=== PATIENT | male | born 1975 | race Caucasian/White ===

== ENCOUNTER 2020-09-09 03:16 | Emergency (ER) | payer BC, OTHER ==
[~2020-09-09] VITALS: Ht 177.8 cm; Wt 71.8 kg
[2020-09-09] MEDS ORDERED: COLCHICINE 0.6 MG CAPSULE ONE (04:15)
[2020-09-09] MEDS ORDERED: OXYcodone/APAP 5/325MG TABLET ONE (04:15)
[2020-09-09] MEDS ORDERED: KETOROLAC 60 MG/2 ML ONE (04:15)
[2020-09-09] MEDS ORDERED: ONDANSETRON ODT 4 MG ONE (04:15)
[2020-09-09] MEDS ORDERED: KETOROLAC 30 MG/1 ML IM ONE (04:30)
[2020-09-09] MEDS ORDERED: ONDANSETRON ODT 4 MG PO ONE (04:30)
[2020-09-09] MEDS ORDERED: OXYcodone/APAP 5/325MG TABLET PO ONE (04:30)
[2020-09-09] MEDS ORDERED: COLCHICINE 0.6 MG CAPSULE PO ONE (04:30)
[2020-09-09 04:31] LABS: BASOPHILS % (AUTO) 0 % (0-1); EOSINOPHILS % (AUTO) 1 % (1-7); LYMPHOCYTES % (AUTO) 8 % (22-44); MEAN CORPUSCULAR HEMOGLOBIN 31.8 pg (27.5-34.5); MEAN CORPUSCULAR HGB CONC 35.2 g/dL (33.2-36.2); MEAN PLATELET VOLUME 7.8 fL (7.4-10.4); MONOCYTES % (AUTO) 10 % (2-9); NEUTROPHILS % (AUTO) 81 % (42-75); PLATELET COUNT 289 x10^3/uL (130-400); RED BLOOD COUNT 4.93 x10^6/uL (4.38-5.82); RED CELL DISTRIBUTION WIDTH 12.8 % (9.4-14.8)
[2020-09-09 04:42] LABS: ALBUMIN 3.4 g/dL (3.4-5.0); ANION GAP 5 mmol/L (5-15); CHLORIDE 100 mmol/L (98-107); CREATININE 0.99 mg/dL (0.7-1.3)
[2020-09-09 04:49] LABS: CALCIUM 8.9 mg/dL (8.5-10.1)
[2020-09-09 05:02] VITALS: BP 160/77
--- NOTE | 2020-09-09 05:02 | NUR ---
ERP SPOKE WITH PT ABOUT URIC ACID LEVEL BEING LOW AND IMPORTANCE OF GETTING A JOINT ARTHROCENTESIS, PT REFUSED FOR ERP WELL FOR THIS RN. PT STATES HE WANTS TO DO IT OUT PATIENT
== END 2020-09-09 05:32 | disposition home or self-care (01) ==
LOC: ED 05:23
DX: M25.571 Pain in right ankle and joints of right foot (principal); M25.532 Pain in left wrist; E11.9 Type 2 diabetes mellitus without complications; R11.0 Nausea; Z87.891 Personal history of nicotine dependence
CPT/HCPCS: 36415; 80048; 82040; 84550; 85025; 85651; 86140; 96372; 99283; J1885

== ENCOUNTER 2020-10-19 05:55 | Inpatient (IN) | payer BC ==
[~2020-10-19] VITALS: Ht 180.3 cm; Wt 72.8 kg
[2020-10-19 07:09] VITALS: BP 145/90
[2020-10-19 07:23] LABS: ALANINE AMINOTRANSFERASE 18 U/L (12-78); ALBUMIN 3.3 g/dL (3.4-5.0); ANION GAP 5 mmol/L (5-15); CALCIUM 8.7 mg/dL (8.5-10.1); CHLORIDE 98 mmol/L (98-107); CREATININE 1.12 mg/dL (0.7-1.3)
[2020-10-19 07:24] LABS: ALKALINE PHOSPHATASE 159 U/L (45-117); BILIRUBIN,TOTAL 0.6 mg/dL (0.2-1.0); TOTAL PROTEIN 8.4 g/dL (6.4-8.2)
[2020-10-19] MEDS ORDERED: LACTATED RINGERS 1,000 ML IV SCH (07:30)
[2020-10-19] MEDS ORDERED: SODIUM CHLORIDE 0.9% 1,000 ML IV SCH (07:30)
[2020-10-19] MEDS ORDERED: CHLORHEXIDINE 15 ML UDC PO ONE (07:30)
[2020-10-19 07:32] LABS: INTERNATIONAL NORMALIZED RATIO 0.96 (0.93-1.1); PROTHROMBIN TIME 10.3 Seconds (9.6-11.5)
[2020-10-19] MEDS ORDERED: TRAM50TA2 PO (07:34)
[2020-10-19] MEDS ORDERED: NPH,100V SQ (07:34)
[2020-10-19] MEDS ORDERED: COLC0.6C3 PO (07:34)
[2020-10-19] MEDS ORDERED: INSU100V5 SQ-INSULIN (07:34)
[2020-10-19] MEDS ORDERED: INSULIN SINGLE DOSE, ER ONE (09:12)
[2020-10-19] MEDS ORDERED: INSULIN REGULAR 100 UNITS/ML, 3ML VIAL SQ-INSULIN ONE ×2 (09:30)
[2020-10-19] MEDS ORDERED: LABETALOL 5MG/ML, 20ML IV PRN (11:00)
[2020-10-19] MEDS ORDERED: OXYcodone 5 MG/5 ML ORAL.SOL UDC PO PRN ×2 (11:00→14:00)
[2020-10-19] MEDS ORDERED: ACETAMINOPHEN 325 MG TABLET PO PRN (11:00)
[2020-10-19] MEDS ORDERED: ONDANSETRON 2MG/ML, 2ML IVPush PRN (11:00)
[2020-10-19] MEDS ORDERED: MEPERIDINE/PF 25MG/0.5ML IVPush PRN (11:00)
[2020-10-19] MEDS ORDERED: morphine SULFATE 10 MG/ML, 1ML IVPush PRN (11:00)
[2020-10-19] MEDS ORDERED: FENTANYL PF 250 MCG/5ML ONE ×3 (11:00→12:55)
[2020-10-19] MEDS ORDERED: MIDAZOLAM 1 MG/ML, 2ML ONE (11:00)
[2020-10-19] MEDS ORDERED: CLINDAMYCIN 150 MG/ML, 6ML ONE (11:09)
[2020-10-19] MEDS ORDERED: GENTAMICIN 80 MG/2 ML ONE ×2 (11:09→11:16)
[2020-10-19] MEDS ORDERED: VISIPAQUE 270 MG/ML, 150ML BOTTLE INJ ONE (11:32)
[2020-10-19] MEDS ORDERED: NEOSTIGMINE 1 MG/ML, 10ML ONE (11:40)
[2020-10-19] MEDS ORDERED: ROCURONIUM 10MG/ML,5ML ONE (11:40)
[2020-10-19] MEDS ORDERED: PROPOFOL 10 MG/ML, 20ML ONE (11:40)
[2020-10-19] MEDS ORDERED: GLYCOPYRROLATE 0.2MG/1ML, 5ML ONE (11:40)
[2020-10-19] MEDS ORDERED: CEFAZOLIN 1,000 MG ONE (11:40)
[2020-10-19] MEDS ORDERED: hydrALAzine 20 MG/ML, 1ML ONE (13:42)
[2020-10-19] MEDS: hydrALAzine 20 MG/ML, 1ML IV PRN ×2 (13:42→14:22)
[2020-10-19] MEDS ORDERED: OXYcodone 5 MG/5 ML ORAL.SOL UDC ONE (13:50)
[2020-10-19] MEDS ORDERED: FENTANYL PF 100 MCG/2ML ONE (13:50)
[2020-10-19] MEDS: FENTANYL PF 100 MCG/2ML IV PRN ×2 (13:51→13:56)
[2020-10-19] MEDS ORDERED: HYDROmorphone 1 MG/ML, 1ML INJ IV PRN (14:00)
[2020-10-19] MEDS: KETOROLAC 30 MG/1 ML IVPush SCH ×2 (14:00→21:17)
[2020-10-19] MEDS ORDERED: HEPARIN 5,000 UNITS/ML, 1ML SQ SCH (14:00)
[2020-10-19] MEDS ORDERED: ONDANSETRON 2MG/ML, 2ML IV PRN (14:00)
[2020-10-19] MEDS ORDERED: KETOROLAC 30 MG/1 ML ONE (14:05)
[2020-10-19] MEDS ORDERED: HYDROmorphone 2 MG/ML, 1ML ONE ×2 (14:06→18:19)
[2020-10-19] MEDS: HYDROmorphone 1 MG/ML, 1ML INJ IVPush PRN ×4 (14:07→14:30)
[2020-10-19 14:39] LABS: ALBUMIN 2.9 g/dL (3.4-5.0); ANION GAP 6 mmol/L (5-15); CALCIUM 8.3 mg/dL (8.5-10.1); CHLORIDE 104 mmol/L (98-107); CREATININE 0.83 mg/dL (0.7-1.3)
[2020-10-19] MEDS ORDERED: ACETAMINOPHEN 325 MG TABLET PO SCH (15:00)
[2020-10-19] MEDS: SODIUM CHLORIDE 0.9% 1,000 ML IV SCH (18:28)
[2020-10-19 20:08] VITALS: BP 119/72
[2020-10-19] MEDS: DOCUSATE 100 MG CAPSULE PO SCH (21:16)
[2020-10-19] MEDS: ACETAMINOPHEN 325 MG TABLET PO SCH (21:17)
[2020-10-19] MEDS: INSULIN NPH HUMAN 100 UNIT/ML, 3ML VIAL SQ-INSULIN SCH (21:49)
[2020-10-20 00:03] VITALS: BP 130/75
[2020-10-20] MEDS ORDERED: INSULIN LISPRO 100 UNITS/ML, PEN SQ-INSULIN ONE (01:30)
[2020-10-20] MEDS: KETOROLAC 30 MG/1 ML IVPush SCH ×3 (02:33→15:35)
[2020-10-20] MEDS: ACETAMINOPHEN 325 MG TABLET PO SCH ×3 (02:33→15:35)
[2020-10-20] MEDS: SODIUM CHLORIDE 0.9% 1,000 ML IV SCH ×2 (02:34→10:20)
[2020-10-20 04:09] VITALS: BP 131/75
[2020-10-20 05:13] VITALS: BP 130/82
[2020-10-20 07:39] LABS: CHLORIDE 104 mmol/L (98-107)
[2020-10-20 07:49] LABS: ANION GAP 6 mmol/L (5-15); CALCIUM 8.2 mg/dL (8.5-10.1); CREATININE 0.93 mg/dL (0.7-1.3)
[2020-10-20] MEDS ORDERED: HEPARIN 5,000 UNITS/ML, 1ML SQ SCH (08:00)
[2020-10-20] MEDS: INSULIN NPH HUMAN 100 UNIT/ML, 3ML VIAL SQ-INSULIN SCH (08:09)
[2020-10-20] MEDS: INSULIN LISPRO 100 UNITS/ML, PEN SQ-INSULIN SCH ×2 (08:09→11:47)
[2020-10-20 08:10] VITALS: BP 116/70
[2020-10-20] MEDS: DOCUSATE 100 MG CAPSULE PO SCH (08:17)
[2020-10-20] MEDS ORDERED: POLYETHYLENE GLYCOL 17 GM PACKET PO SCH (09:00)
[2020-10-20 13:23] VITALS: BP 153/83
== END 2020-10-20 15:54 | disposition home or self-care (01) | DRG 661 ==
LOC: OUT 05:55 → 4NE 15:25
PROVIDERS: ADMIT Student in an Organized Health Care Education/Training Program; ATTEND Student in an Organized Health Care Education/Training Program
PROC: 0T778DZ Dilation of Left Ureter with Intraluminal Device, Via Natural or Artificial Opening Endoscopic (ICD-10-PCS; 2020-10-19)
PROC: BT13ZZZ Fluoroscopy of Bilateral Kidneys (ICD-10-PCS; 2020-10-19)
PROC: 0TC18ZZ Extirpation of Matter from Left Kidney, Via Natural or Artificial Opening Endoscopic (ICD-10-PCS; principal; 2020-10-19 10:30)
DX: N20.0 Calculus of kidney (principal); E11.9 Type 2 diabetes mellitus without complications; Z20.822 Contact with and (suspected) exposure to COVID-19
CPT/HCPCS: 36415; 74425; S0077; 80048; 80053; 82040; 82360; 82962; 85014; 85018; 85610; 86850; 86900; 87635; 88300; 93005; G0378; J0690; J1170; J1644; J1815; J1885; J2250; J2405; J2704; J2710; J3010; Q9966; C1727; C1758; C1769; C2617; C2625; C2627; J0360; J1580; J7030; J7120